=== PATIENT | female | born 1970 | race Caucasian/White ===

== ENCOUNTER 2016-11-02 21:11 | Emergency (ER) | payer MEDICARE ==
--- NOTE | ~2016-11-02 | CR21 ---
[facility]. [facility] A Service of [facility] & [facility] RADIOLOGY TEXT RESULTS PATIENT: JOHN QUINTERO LOCATION: SED : 74 UNIT #: [id number] AGE: [address]: Manolo Quinones SEX: F ORDER DR: [id number] [place] [id number] E MR#: [id number] Acc #: [id number] NAME: JOHN QUINTERO : 1970 SEX: F STUDY DATE/TIME: 11/02/2016 21:24 UNIT: SED ROOM: STUDY DESCRIPTION: CR Ankle Min 3 Views Rt Attending Physician: Manolo Quinones P.A.-C. Ordering Physician: Manolo Quinones P.A.-C. Primary Care Physician: Primary Care Physician No MEDICAL IMAGING REPORT This report is preliminary unless electronic signature is present. EXAM Right ankle 3 views, 11/02/2016 HISTORY Medial ankle pain and swelling for 2 weeks after fall. FINDINGS 3 views of the right ankle demonstrate satisfactory bone alignment. No fracture, joint space narrowing or dislocation. Moderate sized plantar calcaneal spur. Moderate soft tissue swelling over the lateral malleolus. IMPRESSION No fracture. There is soft tissue swelling over the lateral malleolus. Dictated by... Bo Ross M.D. THIS IS AN ELECTRONICALLY VERIFIED REPORT Bo Ross M.D. at 11/03/2016 2:43 PM DFL/alisa TD: 11/03/2016 04:07 JOB #: [id number] MEDICAL IMAGING REPORT Page 1 of 1
[2016-11-02 21:08] LABS: URINE SOURCE CLEAN CATCH
[2016-11-02 21:11] LABS: URINE APPEARANCE TURBID; URINE BILIRUBIN NEG (NEG); URINE BLOOD 3+ (NEG); URINE COLOR YELLOW; URINE GLUCOSE NEG (NORM); URINE KETONE NEG (NEG); URINE LEUKOCYTE ESTERASE 2+ (NEG); URINE NITRATE POS (NEG); URINE PROTEIN 2+ (NEG); URINE SPECIFIC GRAVITY >=1.030 (1.003-1.035)
[~2016-11-02 21:11] MED LIST: ADDERALL PO; KLONOPIN0.5 MG PO; LORTAB 5/500 TA1 TA1 PO; NAPROXEN PO; PREDNISONE PO; PROMETHAZINE-D240 ML PO; PROZAC PO; ZITHROMAX PO
[2016-11-02 21:12] LABS: MICRO INDICATED? YES
[2016-11-02 21:17] LABS: CULTURE INDICATED? YES; URINE BACTERIA 2+ (NEG); URINE SQUAMOUS EPITHELIAL CELL FEW /[HPF]; URINE WBC 100-200 /[HPF] (0-5)
[2016-11-02 21:20] LABS: AMPHETAMINE POS (NEG); BARBITURATES NEG (NEG); BENZODIAZEPINES NEG (NEG); COCAINE NEG (NEG); MARIJUANA NEG (NEG); OPIATES NEG (NEG); TRICYCLIC ANTIDEPRESSANTS NEG (NEG); U METHADONE NEG (NEG)
== END 2016-11-02 22:26 | disposition home or self-care (01) ==
LOC: SED 21:11
PROVIDERS: Physician Assistant
DX: S93.401A Sprain of unspecified ligament of right ankle, initial encounter (principal); N39.0 Urinary tract infection, site not specified; I10 Essential (primary) hypertension; Z79.1 Long term (current) use of non-steroidal anti-inflammatories (NSAID); W19.XXXA Unspecified fall, initial encounter; X50.1XXA Overexertion from prolonged static or awkward postures, initial encounter; Y92.009 Unspecified place in unspecified non-institutional (private) residence as the place of occurrence of the external cause
CPT/HCPCS: 29540; 73610; 80307; 81003; 84703; 87086; 87088; 87186; 99283

== ENCOUNTER 2017-02-11 10:23 | Emergency (ER) | payer MEDICARE ==
--- NOTE | ~2017-02-11 | CT4 ---
[facility] A Service of [facility] & [facility] RADIOLOGY TEXT RESULTS PATIENT: JOHN QUINTERO LOCATION: [facility] : 74 UNIT #: [id number] AGE: [address]: Anil Ramirez MD SEX: F ORDER DR: [id number] [facility] [address] [place], [place] [address] [id number] MR#: [id number] Acc #: [id number] NAME: JOHN QUINTERO : 1970 SEX: F STUDY DATE/TIME: 02/11/2017 11:58 UNIT: [facility] ROOM: STUDY DESCRIPTION: CT Abd and Pelv Wo Cont Attending Physician: Anil Ramirez M.D. Ordering Physician: Anil Ramirez M.D. Primary Care Physician: No Primary Care Physician MEDICAL IMAGING REPORT This report is preliminary unless electronic signature is present EXAM CT abdomen and pelvis without contrast 02/11/2017 1158 hours. HISTORY 47-year-old woman with left flank pain for several weeks, diagnosis of recent urinary tract infection. Patient presents today with nausea, vomiting, diarrhea and fever. COMPARISON CT abdomen and pelvis 10/24/2014. TECHNIQUE Helical noncontrasted images were obtained from the lung bases through the pubic symphysis without oral or intravenous contrast. Sagittal and coronal reconstructions were performed. Total exam DLP 550 mGy-cm. This CT exam was performed with one or more of the following radiation dose reduction techniques: Automatic exposure control, adjustment of mA and/or kV according to patient size, and iterative reconstruction. FINDINGS Images through the lung bases are clear. There are no effusions. The distal esophagus is normal. Images through the abdomen without contrast demonstrate a normal appearance to the liver, spleen, pancreas and bile ducts. There are clips consistent with prior cholecystectomy. The adrenal glands are normal. The kidneys demonstrate no mass, stone or abnormal density. There is no perinephric stranding. There is no pelvocaliectasis or ureterectasis. No ureteral calculi are seen. The bladder appears normal. Stomach contains some food debris but is not abnormal. Small bowel is unremarkable. Terminal ileum, appendix and cecum are normal. There is no distension or wall thickening seen in the colon. There are scattered colonic diverticula in the distal descending colon and sigmoid colon. [facility]. [facility] A Service of [facility] RADIOLOGY TEXT RESULTS PATIENT: JOHN QUINTERO LOCATION: [facility] : 74 UNIT #: [id number] AGE: [address]: Anil Ramirez MD SEX: F ORDER DR: The bladder appears normal. The uterus is unremarkable. There is no adnexal mass. There is no distension of the rectum. There is an air density structure in the perineum in the midline measuring 5.2 cm anterior to posterior by 3.9 cm transverse not seen on prior CT 10/24/2014. Question whether this is related to air within folds of the labia or possible rectal prolapse. Correlate with physical exam. IMPRESSION 1. No renal or ureteral calculi. 2. There are scattered diverticula in the descending colon and sigmoid colon without CT evidence of diverticulitis. 3. Normal appendix. 4. The bladder, uterus and ovaries appear normal. There is no rectal distension. 5. There is air extending from the lower pelvic region into the perineum measuring 5.2 x 3.9 cm not seen on prior study. Question whether this is related to some degree of rectal prolapse. Correlate with physical exam. This is not seen on the CT of 10/24/2014. Dictated by... Fernanda Mccormack M.D. THIS IS AN ELECTRONICALLY VERIFIED REPORT Fernanda Mccormack M.D. at 02/11/2017 5:18 PM ARLENE/balaji TD: 02/11/2017 15:18 JOB #: [id number] MEDICAL IMAGING REPORT Page 1 of 1 COPY
[2017-02-11 11:43] LABS: URINE SOURCE CLEAN CATCH
[2017-02-11 11:46] LABS: URINE APPEARANCE CLEAR; URINE BILIRUBIN NEG (NEG); URINE BLOOD 3+ (NEG); URINE COLOR YELLOW; URINE GLUCOSE NEG (NEG); URINE KETONE NEG (NEG); URINE LEUKOCYTE ESTERASE NEG (NEG); URINE NITRATE NEG (NEG); URINE PH 5.5 (5-8); URINE PROTEIN NEG (NEG); URINE SPECIFIC GRAVITY 1.029 (1.003-1.035)
[2017-02-11 11:48] LABS: URBCS1 AUWI INNUM /[HPF] (0-2); URINE BACTERIA AUWI NEG (NEGATIVE); URINE SQUAMOUS EPITHELIAL CELL NONE SEEN /[HPF]; UWBCS1 AUWI 0-2 (0-5)
[2017-02-11 11:49] LABS: CULTURE INDICATED? NO
[2017-02-11 11:55] LABS: BASOPHIL% 0.2 % (0-2.5); EOSINOPHIL# 0.1 X10e3 (0-0.7); EOSINOPHIL% 1.1 % (0.0-7.0); HEMATOCRIT 37.2 % (35.0-45.0); HEMOGLOBIN 12.4 gm/dL (12.0-16.0); LYMPHOCYTE# 1.7 X10e3 (1.0-3.5); LYMPHOCYTE% 27.2 % (17.0-45.0); MEAN CELL VOLUME 89.3 FL (83-96); MEAN CORPUSCULAR HEMOGLOBIN 29.7 PG (28-34); MEAN CORPUSCULAR HGB CONC 33.2 g/dL (30-36); MEAN PLATELET VOLUME 6.9 FL (6.5-11.5); MONOCYTE# 0.5 X10e3 (0-1.0); NEUTROPHIL# 3.9 X10e3 (1.5-7.1); NEUTROPHIL% 63.5 % (40-75); PLATELET COUNT 282 X10e3 (140-420); RED BLOOD COUNT 4.17 X10e (3.90-5.30); RED CELL DISTRIBUTION WIDTH 13.5 % (11.0-15.5); WHITE BLOOD COUNT 6.1 X10e3 (4.0-10.5)
[2017-02-11 11:57] LABS: DIFF IND NO
[2017-02-11 12:16] LABS: CALCIUM SERUM 8.3 mg/dL (8.4-10.2); CREATININE SERUM 0.7 mg/dL (0.6-1.4); GLOM FILT RATE Estimated 104.6 mL/min (>60); POTASSIUM 3.4 mmol/L (3.5-5.1)
== END 2017-02-11 13:00 | disposition home or self-care (01) ==
LOC: CED 10:23
PROVIDERS: Emergency Medicine
DX: R10.9 Unspecified abdominal pain (principal); I10 Essential (primary) hypertension; F41.9 Anxiety disorder, unspecified; F32.9 Major depressive disorder, single episode, unspecified; Z90.49 Acquired absence of other specified parts of digestive tract; Z88.0 Allergy status to penicillin
CPT/HCPCS: 36415; 74176; 80048; 81003; 84703; 85025; 96374; 96375; 99284; J1885; J2405

== ENCOUNTER 2017-04-17 03:57 | Emergency (ER) | payer MEDICARE | END 2017-04-17 06:22 | disposition home or self-care (01) | LOC: CED 03:57 | DX: J06.9 Acute upper respiratory infection, unspecified (principal); Z88.0 Allergy status to penicillin | CPT/HCPCS: 87651; 94640; 99283 ==